=== PATIENT | female | born 1970 | race Caucasian/White ===

== ENCOUNTER → 2022-07-20 | Outpatient (REF) | payer BC | LOC: M LAB REF 17:11 | PROVIDERS: ATTEND Family Medicine | DX: Z12.4 Encounter for screening for malignant neoplasm of cervix (principal) ==

== ENCOUNTER → 2023-05-27 | Day surgery (SDC) | payer BC ==
[~2023-05-27] VITALS: Ht 168.9 cm; Wt 90.6 kg
[~2023-05-27] MED LIST: ACET325C5 PO; ALLO100T PO; DULO1CAP6 PO; HYDR-3490 PO; LIDOCAINE 2% 100MG/5ML SDV (FOR ANES.) As Ordered ONE; LISI20TA33 PO; NS 1,000 ML IV ONE; TIZA10TA; fentaNYL 100 MCG/2 ML INJECTION As Ordered ONE; propofoL 200 MG/20 ML VIAL As Ordered ONE
[2023-05-27 13:04] VITALS: BP 115/70; TEMP 97; O2SAT 98
== END | disposition home or self-care (01) ==
LOC: M OPP 10:49
PROVIDERS: ATTEND Surgery
DX: Z12.11 Encounter for screening for malignant neoplasm of colon (principal); Z80.0 Family history of malignant neoplasm of digestive organs; K44.9 Diaphragmatic hernia without obstruction or gangrene; I10 Essential (primary) hypertension; M10.9 Gout, unspecified; K21.9 Gastro-esophageal reflux disease without esophagitis; M19.90 Unspecified osteoarthritis, unspecified site; F41.9 Anxiety disorder, unspecified; F32.A Depression, unspecified; Z79.899 Other long term (current) drug therapy; Z80.8 Family history of malignant neoplasm of other organs or systems
CPT/HCPCS: 43239; 45378; 88305; J3010

== ENCOUNTER 2025-04-12 05:35 | Emergency (ER) | payer OTHER, BC ==
[~2025-04-12] VITALS: Ht 167.6 cm; Wt 99.1 kg
[~2025-04-12 05:35] MED LIST changes: -LIDOCAINE 2% 100MG/5ML SDV (FOR ANES.) As Ordered ONE; -NS 1,000 ML IV ONE; -fentaNYL 100 MCG/2 ML INJECTION As Ordered ONE; -propofoL 200 MG/20 ML VIAL As Ordered ONE
[2025-04-12] MEDS ORDERED: GABA-1171 (05:46)
[2025-04-12] MEDS ORDERED: FAMO40TA3 (05:46)
[2025-04-12] MEDS ORDERED: ALBU8.5H (05:46)
[2025-04-12] MEDS: IBUPROFEN 400 MG TAB PO ONE (07:23)
[2025-04-12] MEDS: ACETAMINOPHEN 500 MG TAB PO ONE (07:24)
[2025-04-12] MEDS ORDERED: PERC5TAB12 PO (09:18)
[2025-04-12 09:55] VITALS: BP 146/74; TEMP 97.9; O2SAT 97
== END 2025-04-12 09:59 | disposition home or self-care (01) ==
LOC: M ED 05:35
DX: S42.252A Displaced fracture of greater tuberosity of left humerus, initial encounter for closed fracture (principal); S50.02XA Contusion of left elbow, initial encounter; Y92.9 Unspecified place or not applicable; Y93.9 Activity, unspecified; Y99.0 Civilian activity done for income or pay; W01.198A Fall on same level from slipping, tripping and stumbling with subsequent striking against other object, initial encounter; I10 Essential (primary) hypertension; F32.A Depression, unspecified; F41.9 Anxiety disorder, unspecified; Z79.1 Long term (current) use of non-steroidal anti-inflammatories (NSAID); Z79.51 Long term (current) use of inhaled steroids; Z79.899 Other long term (current) drug therapy